=== PATIENT | female | born 1945 | race Caucasian/White ===

== ENCOUNTER 2018-05-22 16:08 | Emergency (ER) | payer MEDICARE, OTHER ==
[~2018-05-22] VITALS: Ht 165.1 cm; Wt 72.7 kg
[2018-05-22 16:12] VITALS: TEMP 98.7
[2018-05-22 16:32] LABS: BASO % 0.3 % (0.0-2.0); EOS # 0.1 (0.0-0.7); EOS % 1.2 % (0-4.0); GRAN # 4.1 (1.4-6.5); GRAN % 63.3 % (42.2-75.2); HEMOGLOBIN 12.5 g/dl (12.5-16.0); LYMPH # 1.3 (1.2-3.4); LYMPH % 19.7 % (20.0-51.0); MEAN CELL VOLUME 84 fl (80.0-100.0); MEAN CORPUSCULAR HEMOGLOBIN 31 pg (27.0-31.0); MEAN CORPUSCULAR HGB CONC 36 g/dl (33.0-37.0); MEAN PLATELET VOLUME 8.9 fl (7.4-10.4); PLATELET COUNT 282 K/mm3 (130-400)
[2018-05-22 16:33] LABS: HEMATOCRIT 34.6 % (37.0-47.0)
[2018-05-22 16:42] LABS: ALANINE AMINOTRANSFERASE 34 U/L (9-52); ALKALINE PHOSPHATASE 66 U/L (50-136); ANION GAP 15 mmol/L (7-16); AST,SGOT 31 U/L (15-37); BLOOD UREA NITROGEN 16 mg/dL (7-17); CALCIUM 9.3 mg/dL (8.4-10.2); CARBON DIOXIDE 16 mmol/L (22-30); CHLORIDE 93 mmol/L (98-107); CREATININE, serum 1.16 mg/dL (0.52-1.25); GLUCOSE 120 mg/dL (74-106); POTASSIUM 4.2 mmol/L (3.4-5.0); SODIUM 124 mmol/L (137-145); TOTAL PROTEIN 6.9 gm/dL (6.4-8.2)
[2018-05-22 16:49] LABS: INR 1.1 (0.8-3.0); PROTHROMBIN TIME 12.1 SECONDS (9.7-12.8)
[2018-05-22 16:58] LABS: TROPONIN-I < 0.012 ng/mL (0.000-0.034)
[2018-05-22] MEDS ORDERED: VALTREX 50500 MG/TAB PO (18:57)
[2018-05-22] MEDS ORDERED: PRILOSEC 20MG20 MG PO (18:57)
[2018-05-22] MEDS ORDERED: COZAAR 25MG25 MG/TAB PO (18:57)
[2018-05-22] MEDS ORDERED: ALDACTONE50 MG PO (18:57)
[2018-05-22 20:14] LABS: CALCIUM 8.2 mg/dL (8.4-10.2); CREATININE, serum 1.05 mg/dL (0.52-1.25); POTASSIUM 4.6 mmol/L (3.4-5.0)
[2018-05-22 20:48] VITALS: BP 119/69; PULSE 80
== END 2018-05-22 20:49 | disposition home or self-care (01) ==
LOC: COL.ER 16:08
PROVIDERS: Emergency Medicine
DX: E86.0 Dehydration (principal); E87.1 Hypo-osmolality and hyponatremia; I10 Essential (primary) hypertension
CPT/HCPCS: J2765; J7030